=== PATIENT | male | born 1990 | race Caucasian/White ===

== ENCOUNTER 2020-03-23 14:55 | Outpatient (CLI) | payer BC | END 2020-03-23 14:56 | disposition home or self-care (01) | LOC: CTENTCT 14:55 | PROVIDERS: ATTEND Otolaryngology Plastic Surgery within the Head & Neck | DX: J01.90 Acute sinusitis, unspecified (principal) | CPT/HCPCS: 70486 ==

== ENCOUNTER 2021-10-13 03:35 | Emergency (ER) | payer BC ==
[2021-10-13] MEDS ORDERED: Ondansetron ODT 4 MG TAB ONE (03:39)
[2021-10-13] MEDS ORDERED: Acetaminophen 500 MG TAB ONE (03:59)
[2021-10-13] MEDS ORDERED: Ibuprofen 800 MG TAB ONE (03:59)
[2021-10-13] MEDS ORDERED: diphenhydrAMINE 50 MG/ML VIAL ONE (05:56)
[2021-10-13] MEDS ORDERED: Metoclopramide HCl 10 MG/2 ML VIAL ONE (05:56)
[2021-10-13 06:34] LABS: #Monocytes 0.3 thou/uL (0.11-0.59); #Neutrophils 4.4 thou/uL (1.40-6.50); %Basophils 0.8 % (0.0-1.0); %Eosinophils 0.2 % (0.0-10.0); %Lymphocytes 17.5 % (21.0-51.0); %Monocytes 5.3 % (0.0-10.0); %Neutrophils 76.2 % (42.0-75.0); Hemoglobin 16.2 g/dL (14.0-18.0); Mean Corpuscular HGB CONC 33.4 g/dL (32.0-36.0); Mean Corpuscular Hemoglobin 31.1 pg (27.0-31.0); Mean Corpuscular Volume 92.9 fL (78.0-98.0); Platelet Count 183 thou/uL (130-400); RBC Distribution Width 12.8 % (11.5-14.5); Red Blood Cell (RBC) Count 5.22 mill/uL (4.70-6.10); White Blood Cell (WBC) Count 5.8 thou/uL (4.8-10.8)
[2021-10-13 06:55] LABS: ALT (SGPT) 76 U/L (8-55); AST (SGOT) 33 U/L (5-34); Albumin 4.6 g/dL (3.5-5.0); Alkaline Phosphatase 146 U/L (40-110); Anion Gap 14 mmol/L (10-20); BUN (Urea Nitrogen) 13 mg/dL (8.9-20.6); Bilirubin, Total 0.6 mg/dL (0.2-1.2); Calc. Creatinine Clearance 0 mL/min (70-130); Calcium 9.9 mg/dL (7.8-10.44); Carbon Dioxide 23 mmol/L (22-29); Chloride 104 mmol/L (98-107); Globulin 3.6 g/dL (2.4-3.5); Glucose 139 mg/dL (70-105); Protein, Total 8.2 g/dL (6.0-8.3); Sodium 137 mmol/L (136-145)
[2021-10-13 15:39] LABS: SARS-CoV-2 PCR by NAA Not Detected (NotDetected)
== END 2021-10-13 07:35 | disposition home or self-care (01) ==
LOC: ERS 03:35
DX: J06.9 Acute upper respiratory infection, unspecified (principal); R11.2 Nausea with vomiting, unspecified; R51.9 Headache, unspecified; R29.700 NIHSS score 0; R74.8 Abnormal levels of other serum enzymes; K21.9 Gastro-esophageal reflux disease without esophagitis; F17.210 Nicotine dependence, cigarettes, uncomplicated; Z20.822 Contact with and (suspected) exposure to COVID-19
CPT/HCPCS: 36415; 71045; 80053; 85025; 87081; 87430; 96372; J1200; J2765; Q0162; U0003; U0005

== ENCOUNTER 2021-10-31 07:16 | Outpatient (CLI) | payer BC | END 2021-10-31 07:17 | disposition home or self-care (01) | LOC: BICCT 07:16 | PROVIDERS: ATTEND Psychiatry & Neurology Neurology | DX: G43.019 Migraine without aura, intractable, without status migrainosus (principal); J34.89 Other specified disorders of nose and nasal sinuses | CPT/HCPCS: 70496; 70498 ==